=== PATIENT | female | born 1955 | race Caucasian/White ===

== ENCOUNTER → 2019-08-30 | Outpatient (REF) | payer MEDICARE, BC | LOC: M LAB REF 15:55 | PROVIDERS: ATTEND Nurse Practitioner Family | DX: E83.52 Hypercalcemia (principal) ==

== ENCOUNTER → 2019-10-21 | Outpatient (CLI) | payer MEDICARE, BC ==
[~2019-10-21] MED LIST: METHACHOLINE KIT (J7674) INH ONE
--- NOTE | 2019-10-21 11:18 | PFTRPT ---
Site: [facility], [address], [place], [address] ID: [id number] Name: DENZEL GAN Visit Date: 10/21/2019 Second ID: [id number] Referring Doctor: Mingo Brown MD Reviewing Doctor: Mingo Brown MD Wig Maker: Chio JENNINGS, ALEX Age: 64 : 1955 Sex: Female Race: Height: 65.00 Inches Weight: 150.00 Lbs BSA: 1.75 Order IDs: [id number] Requested Test(s): <RESP-PFT.METH CHAL> Diagnosis: R06.02 of albuterol for postbronchodilator. Review Status: Not Reviewed Pre-Bronch Post-Bronch Pred Actual %Pred Actual %Chng SPIROMETRY FVC (L) 3.24 2.94 90 2.96 FEV1 (L) 2.47 2.31 93 2.24 -3 FEV1/FVC (%) 77 79 102 76 -3 FEF 25% (L/sec) 4.93 5.40 109 4.95 -8 FEF 50% (L/sec) 3.45 2.76 80 2.45 -11 FEF 75% (L/sec) 1.06 0.78 73 0.66 -15 FEF 25-75% (L/sec) 2.13 2.00 93 1.75 -12 FEF Max (L/sec) 6.06 6.98 115 6.46 -7 FIVC (L) 2.87 2.97 3 FIF 50% (L/sec) 3.33 2.74 82 3.88 41 FIF Max (L/sec) 3.62 4.05 11 Expiratory Time (sec) 7.30 6.94 -4 Back Extrap Vol (L) 0.08 0.08 5 Time To FEFmax (sec) 0.061 0.071 17
== END ==
LOC: M CARPUL 10:24
PROVIDERS: ATTEND Internal Medicine Pulmonary Disease
DX: R06.02 Shortness of breath (principal)
CPT/HCPCS: 94070; 95070; J7674

== ENCOUNTER → 2020-01-03 | Outpatient (CLI) | payer MEDICARE, BC ==
--- NOTE | 2020-01-03 14:45 | REP ---
Clinical: Follow-up pulmonary nodule. Technique: Axial noncontrast images from the thoracic inlet to the upper abdomen with coronal and sagittal re-formations. Comparison: 09/20/2019. Findings: The right lower lobe subpleural nodule is again identified, stable and measures 5 mm. 2 mm calcified granulomata are also appreciated. There is a small focus of inspissated material in the distal right lower lobe bronchiole (image 44). No further significant nodule, mass or consolidation. No effusion. No pneumothorax. Mediastinum demonstrates atherosclerotic changes to the thoracic aorta and coronary arteries without aortic aneurysm or cardiomegaly. No pericardial effusion. No obvious adenopathy. Thyroid gland is grossly normal. Surrounding musculoskeletal structures demonstrate degenerative changes without acute focal abnormality. Impression: 1. Previously identified small right lower lobe nodule remains essentially stable. Management recommendations include 12-month follow-up examination. 2. Small amount of suspected inspissated material in a right lower lobe bronchiole. Electronically Signed by Stevie Tony MD 01/03/2020 02:37 P
== END ==
LOC: M RAD 14:09
PROVIDERS: ATTEND Internal Medicine Pulmonary Disease
DX: R91.8 Other nonspecific abnormal finding of lung field (principal)

== ENCOUNTER → 2020-01-04 | Outpatient (REF) | payer MEDICARE, BC | LOC: M LAB REF 12:15 | PROVIDERS: ATTEND Nurse Practitioner Family | DX: E83.52 Hypercalcemia (principal) ==

== ENCOUNTER → 2020-07-17 | Outpatient (CLI) | payer MEDICARE, BC ==
--- NOTE | 2020-08-15 10:58 | REP ---
NONCONTRAST CHEST CT CLINICAL: Follow-up abnormal lung findings. TECHNIQUE: Axial noncontrast images from the thoracic inlet to the upper abdomen with coronal and sagittal reformations. COMPARISON: 01/03/2020, 09/20/2019. FINDINGS: The bilateral lung cabrales are relatively symmetric and well aerated. A 4-mm noncalcified subpleural nodule along the posteromedial right lower lobe (Image 62), as well as a 2-mm calcified granuloma are again noted and stable. No new nodule or mass lesion. No consolidation. No effusion. No pneumothorax. Tracheobronchial tree is patent. No significant adenopathy identified. Further evaluation of the mediastinum demonstrates atherosclerotic changes to the thoracic aorta and coronary arteries. No cardiomegaly or pericardial effusion. Surrounding musculoskeletal structures are intact. Limited upper abdomen demonstrates normal bilateral adrenal glands. IMPRESSION: * Stable noncalcified subpleural nodule in the posteromedial right lower lobe. Findings likely chronic. Consider 12 month follow-up examination to confirm stability. * No further mediastinal or pleural parenchymal pathology appreciated. MTDD
== END ==
LOC: M RAD 10:41
PROVIDERS: ATTEND Internal Medicine Pulmonary Disease
DX: R91.1 Solitary pulmonary nodule (principal); J84.10 Pulmonary fibrosis, unspecified

== ENCOUNTER → 2021-01-15 | Outpatient (CLI) | payer SELFPAY, BC | LOC: M LABSMTC 10:04 | PROVIDERS: ATTEND Pediatrics | DX: Z11.52 Encounter for screening for COVID-19 (principal) ==

== ENCOUNTER → 2021-04-09 | Outpatient (CLI) | payer MEDICARE, BC ==
--- NOTE | 2021-04-09 09:57 | REPMRS ---
Patient History The patient states she had a clinical breast exam in 11/2020. Patient is postmenopausal. Family history of breast cancer at age 60 in maternal grandmother. No Hormone Replacement Therapy Patient states no breast complaints today. Patient has signed MRS History Sheet. Digital Woman Screen Mammo: April 09, 2021 - Exam #: [id number] Bilateral CC and MLO view(s) were taken. Technologist: Regina Ferguson, Technologist Prior study comparison: March 28, 2020, bilateral digital mammo screening bilat, performed at [facility]. February 08, 2019, bilateral digital mammo screening bilat, performed at [facility]. February 05, 2018, bilateral digital mammo screening bilat, performed at [facility]. FINDINGS: There are scattered fibroglandular densities. The Volpara volumetric breast density category is:B. There has been no change in the appearance of the mammogram from the prior studies. There is a mild amount of scattered fibroglandular density which is fairly symmetric. There is no interval development of dominant mass, architectural distortion, or grouped microcalcification suggestive of malignancy. 3-D tomosynthesis shows no additional findings. Assessment: BI-RADS/ACR category 1 mammogram. Negative Mammogram. Recommendation Routine screening mammogram of both breasts in 1 year (for women over age 40). This patient's [facility] Lifetime Breast Cancer Risk is estimated at 8.8 %. This mammogram was interpreted with the aid of an FDA-approved computer-aided dectection system. Electronically Signed By: Antony Block MD 04/09/21 [id number]
== END ==
LOC: M WHC 09:06
PROVIDERS: ATTEND Internal Medicine
DX: Z12.31 Encounter for screening mammogram for malignant neoplasm of breast (principal); Z78.0 Asymptomatic menopausal state; Z80.3 Family history of malignant neoplasm of breast

== ENCOUNTER → 2021-09-11 | Outpatient (CLI) | payer MEDICARE, BC ==
--- NOTE | 2021-09-11 11:44 | REP ---
INDICATION: ABN FINDINGS OF LUNG FIELD COMPARISON: Multiple the latest 07/17/2020 also without contrast TECHNIQUE: Standard helical technique without intravenous contrast administration FINDINGS: The mediastinum and pulmonary josie are stable. No mass or adenopathy has developed. There are no pleural or pericardial effusions. There is no significant change in the appearance of the imaged upper abdomen or imaged osseous structures. Advanced spinal degenerative changes are again noted with advanced discogenic changes and endplate irregularity with sclerosis at the T9-10 level and L1-2 level with a stable grade 2 superior endplate compression deformity seen involving T12. Evaluation of the lung cabrales shows a stable 4 mm size right lower lobe nodular density. There is mild biapical pleuroparenchymal scarring status quo. There is an incidental calcified granuloma in the right lower lobe. There is a stable 3 mm sized pleural base nodule in the left lower lobe. There are no new abnormal nodules, masses, or opacities. IMPRESSION: Stable lung rads category 2 CT examination of the chest. <Electronically signed by Aaron Thompson > 09/11/21 [id number]
== END ==
LOC: M RAD 10:38
PROVIDERS: ATTEND Internal Medicine Pulmonary Disease
DX: R91.8 Other nonspecific abnormal finding of lung field (principal)

== ENCOUNTER → 2022-03-06 | Outpatient (REF) | payer MEDICARE, BC | LOC: M LAB REF 16:14 | PROVIDERS: ATTEND Registered Nurse | DX: N76.0 Acute vaginitis (principal) ==

== ENCOUNTER → 2022-03-12 | Outpatient (CLI) | payer MEDICARE, BC | LOC: M WHC 10:58 | PROVIDERS: ATTEND Internal Medicine Endocrinology, Diabetes & Metabolism | DX: M81.0 Age-related osteoporosis without current pathological fracture (principal) ==

== ENCOUNTER → 2022-04-19 | Outpatient (CLI) | payer MEDICARE, BC | LOC: M WHC 12:56 | PROVIDERS: ATTEND Registered Nurse | DX: Z12.31 Encounter for screening mammogram for malignant neoplasm of breast (principal) ==

== ENCOUNTER → 2022-04-19 | Outpatient (CLI) | payer MEDICARE, BC | LOC: M WHC 12:53 | PROVIDERS: ATTEND Nurse Practitioner Family | DX: M85.851 Other specified disorders of bone density and structure, right thigh (principal); M85.852 Other specified disorders of bone density and structure, left thigh; M81.0 Age-related osteoporosis without current pathological fracture ==

== ENCOUNTER → 2023-04-29 | Outpatient (CLI) | payer MEDICARE, BC | LOC: M WHC 15:55 | PROVIDERS: ATTEND Physician Assistant Medical | DX: Z12.31 Encounter for screening mammogram for malignant neoplasm of breast (principal) ==

== ENCOUNTER → 2023-11-27 | Outpatient (REF) | payer MEDICARE, BC | LOC: M LAB REF 12:24 | PROVIDERS: ATTEND Student in an Organized Health Care Education/Training Program | DX: R30.0 Dysuria (principal) ==

== ENCOUNTER → 2023-12-02 | Outpatient (REF) | payer MEDICARE, BC | LOC: M LAB REF 12:51 | PROVIDERS: ATTEND Physician Assistant Medical | DX: R06.82 Tachypnea, not elsewhere classified (principal); R05.9 Cough, unspecified ==

== ENCOUNTER → 2024-05-05 | Outpatient (CLI) | payer MEDICARE, BC | LOC: M WHC 12:19 | PROVIDERS: ATTEND Internal Medicine | DX: Z12.31 Encounter for screening mammogram for malignant neoplasm of breast (principal); M81.0 Age-related osteoporosis without current pathological fracture ==

== ENCOUNTER → 2024-05-05 | Outpatient (CLI) | payer MEDICARE, BC | LOC: M WHC 12:18 | PROVIDERS: ATTEND Internal Medicine Endocrinology, Diabetes & Metabolism | DX: Z12.31 Encounter for screening mammogram for malignant neoplasm of breast (principal); M85.851 Other specified disorders of bone density and structure, right thigh; M85.852 Other specified disorders of bone density and structure, left thigh ==